=== PATIENT | female | born 1980 | race Caucasian/White ===

== ENCOUNTER 2018-06-05 07:54 | Inpatient (IN) | payer OTHER ==
[~2018-06-05] VITALS: Ht 160 cm; Wt 79.1 kg
[~2018-06-05 07:54] MED LIST: CeFAZolin 1 GM/DEXTROSE 50 ML IV ONE; FAMO20 PO; HYDR-4455 PO; RINGERS SOLUTION,LACTATED 1,000 ML IV ONE; VITAD1000 PO
[2018-06-05] MEDS ORDERED: ACETAMINOPHEN 1000 MG/ISO-OSM 100 ML IV ONE (08:30)
[2018-06-05 08:58] LABS: BASOPHILS % (AUTO) 0.2 % (0.0-2.0); EOSINOPHILS % (AUTO) 0.1 % (1.0-6.0); HEMATOCRIT 34.1 % (36-46); HEMOGLOBIN 11.8 g/dL (12.0-16.0); LYMPHOCYTES # (AUTO) 1.7 K/uL (1.0-4.8); LYMPHOCYTES % (AUTO) 45.4 % (22.0-44.0); MEAN CORPUSCULAR HEMOGLOBIN 34.6 pg (26.0-34.0); MEAN CORPUSCULAR HGB CONC 34.6 G/dL (31.0-37.0); MEAN CORPUSCULAR VOLUME 100 fL (80-100); MONOCYTES # (AUTO) 0.3 K/uL (0.1-1.0); MONOCYTES % (AUTO) 8.2 % (2.0-9.0); NEUTROPHILS # (AUTO) 1.7 K/uL (1.8-7.7); NEUTROPHILS % (AUTO) 46.1 % (40.0-70.0); PLATELET COUNT (AUTO) 199 K/uL (150-450); RED CELL DISTRIBUTION WIDTH 12.4 % (11.5-14.5)
[2018-06-05] MEDS ORDERED: ACETAMINOPHEN 1000 MG/ISO-OSM 0 ML IV ONE (09:02)
[2018-06-05 09:07] LABS: ANION GAP 6 mmol/L (8-16); CALCIUM, TOTAL 8.5 mg/dL (8.8-10.5); CARBON DIOXIDE 30 mmol/L (22-29); CHLORIDE 105 mmol/L (98-107); CREATININE 0.62 mg/dL (0.60-1.30); GLOMERULAR FILTR. RATE CALC > 60 mL/min (>60); GLUCOSE,RANDOM 109 mg/dL (70-110); POTASSIUM 3.4 mmol/L (3.5-5.1); SODIUM SERUM 141 mmol/L (136-145); UREA NITROGEN, BLOOD 16 mg/dL (7-18)
[2018-06-05 09:13] LABS: ALANINE AMINOTRANSFERASE 32 U/L (12-78); ALBUMIN 3.4 g/dL (3.4-5.0); ALKALINE PHOSPHATASE 55 U/L (46-116); ASPARTATE AMINOTRANSFERASE 26 U/L (15-37); BILIRUBIN,TOTAL 0.4 mg/dL (0.1-1.0); TOTAL PROTEIN, SERUM 6.6 g/dL (6.4-8.2)
[2018-06-05 09:15] LABS: INR 0.9 (0.9-1.1); PROTHROMBIN TIME 9.8 SEC (9.4-11.6)
[2018-06-05] MEDS ORDERED: BENZOCAINE/MENTHOL LOZENGE PO PRN (09:45)
[2018-06-05] MEDS ORDERED: ONDANSETRON HCL 4 MG/2 ML VIAL IVP PRN ×2 (09:45→10:30)
[2018-06-05] MEDS ORDERED: DiphenhydrAMINE HCL 50 MG/ML VIAL IVP PRN (09:45)
[2018-06-05] MEDS ORDERED: MAG HYDROX/AL HYDROX/SIMETH 30 ML SUSP UDCUP PO PRN (09:45)
[2018-06-05] MEDS ORDERED: ZOLPIDEM TARTRATE 10 MG TABLET PO PRN (09:45)
[2018-06-05] MEDS ORDERED: BUPIVACAINE HCL/PF 0.5% 30 ML VIAL ONE (10:25)
[2018-06-05] MEDS ORDERED: ZOLPIDEM TARTRATE 5 MG TABLET PO PRN (10:30)
[2018-06-05] MEDS ORDERED: FentaNYL CITRATE-PF 100 MCG/2 ML VIAL IVP PRN (10:30)
[2018-06-05] MEDS ORDERED: CYCLOBENZAPRINE HCL 10 MG TABLET PO PRN (10:30)
[2018-06-05] MEDS ORDERED: MEPERIDINE-PF 25 MG/ML VIAL IVP PRN (10:30)
[2018-06-05] MEDS: BUPIVACAINE LIPOSOME/PF 1.3%-13.3MG/ML SUSPENSION 20 ML VIAL INJ ONE ×2 (10:40→11:09)
[2018-06-05] MEDS ORDERED: RINGERS SOLUTION,LACTATED 1,000 ML IV ONE (10:46)
[2018-06-05] MEDS ORDERED: MEPERIDINE-PF 25 MG/ML VIAL ONE (11:03)
[2018-06-05] MEDS ORDERED: HYDROmorphone 2 MG/ML SYRINGE ONE (11:04)
[2018-06-05] MEDS: HYDROmorphone 2 MG/ML SYRINGE IVP PRN ×6 (11:06→22:23)
[2018-06-05] MEDS ORDERED: FentaNYL CITRATE-PF 100 MCG/2 ML VIAL ONE ×2 (11:11→11:58)
[2018-06-05 12:18] VITALS: BP 112/63
[2018-06-05] MEDS: ACETAMINOPHEN 1000 MG/ISO-OSM 100 ML IV SCH ×2 (14:32→20:06)
[2018-06-05 16:03] VITALS: BP 114/72
[2018-06-05] MEDS: OxyCODONE HCL 5 MG IR TABLET PO PRN ×2 (16:15→20:07)
[2018-06-05 19:55] VITALS: BP 118/68
[2018-06-05] MEDS ORDERED: OXYGEN THERAPY IH SCH (20:00)
[2018-06-05] MEDS: DOCUSATE SODIUM 100 MG CAPSULE PO SCH ×2 (20:05→20:06)
[2018-06-06 00:33] VITALS: BP 140/66
[2018-06-06] MEDS: OxyCODONE HCL 5 MG IR TABLET PO PRN ×2 (00:45→05:08)
[2018-06-06] MEDS: ACETAMINOPHEN 1000 MG/ISO-OSM 100 ML IV SCH (04:04)
[2018-06-06 05:24] VITALS: BP 99/57
[2018-06-06] MEDS ORDERED: 0.9% SODIUM CHLORIDE 10 ML VIAL IVP ONE (05:41)
[2018-06-06] MEDS ORDERED: PROPOFOL 1% 20 ML VIAL IVP ONE (05:41)
[2018-06-06] MEDS ORDERED: LIDOCAINE/PF 2% 5 ML VIAL IM ONE (05:41)
[2018-06-06] MEDS ORDERED: SUCCINYLCHOLINE CHLORIDE 20 MG/ML 10 ML VIAL IVP ONE (05:41)
[2018-06-06] MEDS ORDERED: PHENYLEPHRINE HCL 10 MG/ML VIAL IVP ONE (05:41)
[2018-06-06] MEDS ORDERED: MIDAZOLAM HCL 2 MG/2 ML VIAL IVP ONE (05:41)
[2018-06-06] MEDS ORDERED: ONDANSETRON HCL 4 MG/2 ML VIAL IVP ONE (05:41)
[2018-06-06] MEDS ORDERED: ROCURONIUM BROMIDE 10 MG/ML 5 ML VIAL IVP ONE (05:41)
[2018-06-06] MEDS ORDERED: FentaNYL CITRATE-PF 100 MCG/2 ML VIAL IVP ONE (05:41)
[2018-06-06] MEDS ORDERED: MORPHINE SULFATE 4 MG/ML SYRINGE IVP ONE (05:41)
[2018-06-06 07:30] VITALS: BP 90/46
[2018-06-06] MEDS: HYDROmorphone 2 MG/ML SYRINGE IVP PRN ×2 (08:24→10:48)
[2018-06-06] MEDS ORDERED: OxyCODONE HCL/ACETAMINOPHEN 10-325 MG TABLET PO PRN (09:00)
[2018-06-06 11:28] VITALS: BP 95/55
== END 2018-06-06 12:40 | disposition home or self-care (01) | DRG 460 ==
LOC: 4E 07:54
PROVIDERS: ADMIT Orthopaedic Surgery Orthopaedic Surgery of the Spine; ATTEND Orthopaedic Surgery Orthopaedic Surgery of the Spine
PROC: 0SG30A0 Fusion of Lumbosacral Joint with Interbody Fusion Device, Anterior Approach, Anterior Column, Open Approach (ICD-10-PCS; principal; 2018-06-05 09:45)
DX: M51.37 Other intervertebral disc degeneration, lumbosacral region (principal); Z98.891 History of uterine scar from previous surgery
CPT/HCPCS: 86850; 86900; 86901; 87081; 93005; 97116; 97161; 97165; 97530; 97535; C9290; J0131; J0330; J0690; J1170; J2175; J2250; J2270; J2370; J2405; J2704; J3010; J3490; J7120